=== PATIENT | female | born 1955 | race Two or more races ===

== ENCOUNTER 2023-05-25 07:53 | Emergency (ER) | payer OTHER ==
[2023-05-25 07:57] VITALS: TEMP 98.2; BMI 31.1
[2023-05-25] MEDS ORDERED: ACETAMINOPHEN 500 MG TABLET (FP) PO ONE (09:28)
[2023-05-25] MEDS ORDERED: ACETAMINOPHEN 325 MG TABLET (FP) ONE (09:36)
[2023-05-25] MEDS ORDERED: LIDOCAINE 5% TOPICAL PATCH TP ONE (10:50)
[2023-05-25] MEDS ORDERED: KETOROLAC TROMETHAMINE 30 MG/1 ML VIAL IM ONE (10:50)
[2023-05-25] MEDS ORDERED: LIDOCAINE 5% TOPICAL PATCH ONE (11:04)
[2023-05-25] MEDS ORDERED: KETOROLAC TROMETHAMINE 30 MG/1 ML VIAL ONE (11:04)
[2023-05-25 12:07] VITALS: BP 126/69; PULSE 79; RESP 19
[2023-05-25] MEDS ORDERED: LIDOCAINE PATCH REMOVAL MC ONE (22:00)
== END 2023-05-25 12:37 | disposition home or self-care (01) ==
LOC: JER 07:53
PROC: 3E0233Z Introduction of Anti-inflammatory into Muscle, Percutaneous Approach (ICD-10-PCS; principal; 2023-05-25)
DX: M25.561 Pain in right knee (principal)
CPT/HCPCS: 0241U-QW; 73562-TC-RT-FY; 99284-25